=== PATIENT | male | born 1980 | race Hispanic/Latino ===

== ENCOUNTER 2024-07-08 08:37 | Emergency (ER) | payer OTHER | END 2024-07-08 09:14 | disposition home or self-care (01) | LOC: MADERS 08:37 | DX: L03.211 Cellulitis of face (principal); F17.290 Nicotine dependence, other tobacco product, uncomplicated | CPT/HCPCS: 99282 ==

== ENCOUNTER 2024-07-08 23:44 | Emergency (ER) | payer OTHER ==
[2024-07-08] MEDS ORDERED: Lidocaine 1% w/Epinephrine 1:100K 20 ML VIAL ONE (23:53)
[2024-07-08] MEDS ORDERED: Bupivacaine HCl 0.5%/Epinephrine 1:200,000/PF 30 ml Vial ONE (23:53)
== END 2024-07-09 00:30 | disposition home or self-care (01) ==
LOC: MADERS 23:44
DX: L02.01 Cutaneous abscess of face (principal); E11.9 Type 2 diabetes mellitus without complications; F17.290 Nicotine dependence, other tobacco product, uncomplicated
CPT/HCPCS: 10060; 87070; 87077; 87186; 87205; 94760